=== PATIENT | female | born 1985 | race Caucasian/White ===

== ENCOUNTER 2019-07-08 17:16 | Emergency (ER) | payer OTHER ==
[2019-07-08 17:25] VITALS: BP 115/62; PULSE 85; TEMP 98.4; BMI 31.8
[2019-07-08] MEDS ORDERED: LIDOCAINE VISCOUS 2% ORAL/TOP 20 ML UNIT-DOSE CUP MM ONE (17:34)
[2019-07-08] MEDS ORDERED: ACETAMINOPHEN 325 MG TABLET (FP) PO ONE (17:34)
[2019-07-08] MEDS ORDERED: ACETAMINOPHEN 500 MG TABLET (FP) ONE (17:35)
[2019-07-08] MEDS ORDERED: LIDOCAINE VISCOUS 2% ORAL/TOP 20 ML UNIT-DOSE CUP ONE (17:37)
--- NOTE | 2019-07-08 17:39 | PDOC ---
History of Present Illness - General Chief Complaint: Toothache Stated Complaint: 7MTHS PREG TOOTHACHE Time Seen by Provider: 07/08/19 17:26 History Source: Patient, Spouse Exam Limitations: No Limitations Past History - Past Medical History Allergies/Adverse Reactions: Allergies Allergy/AdvReac Type Severity Reaction Status Date / Time No Known Allergies Allergy Verified 07/08/19 17:22 - Psycho Social/Smoking Cessation Hx Smoking History: Never smoked Hx Alcohol Use: No Drug/Substance Use Hx: No *Physical Exam - Vital Signs Last Vital Signs Temp Pulse Resp BP Pulse Ox 98.4 F 85 18 115/62 98 07/08/19 17:22 07/08/19 17:22 07/08/19 17:22 07/08/19 17:22 07/08/19 17:22 - Physical Exam General Appearance: No: Apparent Distress HEENT: positive: Pharynx Normal, Other (cracked tooth #18, prior dental fillings noted, no gum swelling, no gum abscess noted, no facial swelling) Gastrointestinal/Abdominal: positive: Other (gravid uterus) Neurologic: positive: Alert Medical Decision Making - Medical Decision Making 34 y/o F 7 months presents with L lower molar toothache from today. Denies fever, sob, cp, abd pain, vaginal bleeding. Has had regular checkups with OB re: her . Last checkup with OB was 3 days ago and was normal. Cracked tooth Given Tylenol and viscous Lidocaine (swish and spit out) advised to f/u in dental urgent care clinic 07/08/19 17:39 Discharge - Discharge Information Problems reviewed: Yes Clinical Impression/Diagnosis: Cracked tooth Condition: Stable Disposition: HOME - Admission No - Additional Discharge Information Prescription Drug Monitoring Program (I-STOP) results: I-STOP not reviewed - Follow up/Referral - Patient Discharge Instructions Patient Printed Discharge Instructions: DI for Dental Pain Additional Instructions: Thank you for choosing [facility]. It was a pleasure taking care of you. You may take Tylenol 650 mg every 6 hours by mouth as needed for mild to moderate pain. Do not take more than 4000 mg of Tylenol in 1 day. Do NOT take Motrin as you are . Please follow-up in the dental urgent care clinic tomorrow: Address: [address] [place] [address] Return to the Emergency Department if your symptoms worsen or persist or have other concerning symptoms. Rad por elegir el [facility]. Fue un placer cuidar de ti. Puede braydon Tylenol 650 mg cada 6 horas por va oral segn sea necesario para el dolor leve a moderado. No tome ms de 4000 mg de Tylenol en 1 da. NO tome Motrin mientras est embarazada. Por favor, romy un seguimiento en la clnica dental de atencin urgente maana: Direccin: [address] [place] [address] Telfono: Regrese al departamento de emergencias si delmar sntomas empeoran o persisten o si tiene otros sntomas preocupantes. Print Language: ZAMBIAN - Post Discharge Activity
== END 2019-07-08 17:58 | disposition home or self-care (01) ==
LOC: JERFT 17:16
DX: O99.89 Other specified diseases and conditions complicating pregnancy, childbirth and the puerperium (principal); K03.81 Cracked tooth; Z3A.28 28 weeks gestation of pregnancy
CPT/HCPCS: 99282-25